=== PATIENT | male | born 1970 | race Two or more races ===

== ENCOUNTER 2017-09-19 20:05 | Inpatient (IN) | payer MEDICARE, MEDICAID ==
[~2017-09-19] VITALS: Ht 182.9 cm; Wt 81.6 kg
[2017-09-19 20:40] VITALS: BP 94/52
[2017-09-19 21:08] LABS: BASOPHILS % (AUTO) 1.3 % (0.0-2.0); EOSINOPHILS % (AUTO) 0.8 % (0.0-3.0); HEMOGLOBIN 11.6 G/DL (14.2-18.0); LYMPHOCYTES % (AUTO) 31.1 % (20.0-45.0); MEAN CORPUSCULAR VOLUME 95 FL (80-99); MONOCYTES % (AUTO) 18.5 % (1.0-10.0); NEUTROPHILS % (AUTO) 48.3 % (45.0-75.0); PLATELET COUNT 201 K/UL (150-450); RED BLOOD COUNT 3.67 M/UL (4.70-6.10); WHITE BLOOD COUNT 4.9 K/UL (4.8-10.8)
[2017-09-19 21:09] LABS: APPEARANCE,URINE CLEAR; BILIRUBIN, URINE NEGATIVE (NEGATIVE); COLOR,URINE PALE YELLOW; GLUCOSE, URINE (UA) NEGATIVE (NEGATIVE); KETONES,URINE NEGATIVE (NEGATIVE); LEUKOCYTE ESTERASE ,URINE NEGATIVE (NEGATIVE); NITRITE,URINE NEGATIVE (NEGATIVE); PH,URINE 6.5 (4.5-8.0); PROTEIN,URINE 2+ (NEGATIVE); UROBILINOGEN,URINE NORMAL MG/DL (0.0-1.0)
[2017-09-19 21:42] LABS: ALANINE AMINOTRANSFERASE 9 U/L (12-78); ALBUMIN 2.9 G/DL (3.4-5.0); ALBUMIN/GLOBULIN RATIO 0.7 (1.0-2.7); ALKALINE PHOSPHATASE 88 U/L (46-116); ANION GAP 10 mmol/L (5-15); ASPARTATE AMINO TRANSFERASE 11 U/L (15-37); BILIRUBIN,TOTAL 0.3 MG/DL (0.2-1.0); BLOOD UREA NITROGEN 17 mg/dL (7-18); CALCIUM 8.5 MG/DL (8.5-10.1); CARBON DIOXIDE 22 MMOL/L (21-32); CHLORIDE 105 MMOL/L (98-107); CKMB 0.5 NG/ML (0.0-3.6); CREATINE KINASE 39 U/L (26-308); CREATININE 2.5 MG/DL (0.55-1.30); SODIUM 137 MMOL/L (136-145)
[2017-09-19 21:45] LABS: POTASSIUM 2.4 MMOL/L (3.5-5.1)
--- NOTE | 2017-09-19 22:14 | Emergency Room Report ---
History of Present Illness General Chief Complaint: Generalized Weakness Source: Patient Present Illness HPI This is a 47 her old male brought in by family member after increased generalized weakness. Patient had reportedly been having a productive cough for several weeks. He reports having greenish colored sputum. He reports prior history of HIV disease which had been noted to have undetectable viral load as well as a low CD4 count. The patient states that he has been treated for Burkitt's lymphoma as well as for HIV at [facility] previously. He denies any current chest pain. He reports having generalized body aches weakness. He reports having prior history of chronic renal disease Allergies: Coded Allergies: LEVOFLOXACIN (Verified Allergy, Unknown, 09/19/17) Patient History Past Medical History: see triage record Reviewed Nursing Documentation: PMH: Agreed, PSxH: Agreed Nursing Documentation-PMH Hx Cancer: Yes - lymphoma Review of Systems All Other Systems: negative except mentioned in HPI Physical Exam Vital Signs Date Time Temp Pulse Resp B/P (MAP) Pulse Ox O2 Delivery O2 Flow Rate FiO2 09/19/17 20:07 99.0 114 18 94/52 98 Room Air Sp02 EP Interpretation: reviewed, normal General Appearance: normal inspection, well appearing, no apparent distress, alert, GCS 15, non-toxic Head: atraumatic ENT: normal ENT inspection, hearing grossly normal, normal voice, uvula midline Neck: normal inspection, full range of motion, supple, no bony tend Respiratory: normal inspection, lungs clear, normal breath sounds, no respiratory distress, no retraction, no wheezing Cardiovascular #1: regular rate, rhythm, no edema Gastrointestinal: normal inspection, normal bowel sounds, non tender, soft, no guarding, no hernia Genitourinary: no CVA tenderness Musculoskeletal: normal inspection, back normal, normal range of motion Neurologic: normal inspection, alert, oriented x3, responsive, 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 Differential diagnosis included was not limited to anemia, urinary tract infection, electrolyte abnormality, hypothyroidism, myocardial infarction, myasthenia gravis, dehydration, among others. Because of complexity of patient's case laboratory testing and imaging studies were ordered. Labs Test 09/19/17 20:50 White Blood Count 4.9 K/UL (4.8-10.8) Red Blood Count 3.67 M/UL (4.70-6.10) Hemoglobin 11.6 G/DL (14.2-18.0) Hematocrit 35.0 % (42.0-52.0) Mean Corpuscular Volume 95 FL (80-99) Mean Corpuscular Hemoglobin 31.7 PG (27.0-31.0) Mean Corpuscular Hemoglobin Concent 33.3 G/DL (32.0-36.0) Red Cell Distribution Width 13.0 % (11.6-14.8) Platelet Count 201 K/UL (150-450) Mean Platelet Volume 6.3 FL (6.5-10.1) Neutrophils (%) (Auto) 48.3 % (45.0-75.0) Lymphocytes (%) (Auto) 31.1 % (20.0-45.0) Monocytes (%) (Auto) 18.5 % (1.0-10.0) Eosinophils (%) (Auto) 0.8 % (0.0-3.0) Basophils (%) (Auto) 1.3 % (0.0-2.0) Urine Color Pale yellow Urine Appearance Clear Urine pH 6.5 (4.5-8.0) Urine Specific [place] 1.010 (1.005-1.035) Urine Protein 2+ (NEGATIVE) Urine Glucose (UA) Negative (NEGATIVE) Urine Ketones Negative (NEGATIVE) Urine Occult Blood 1+ (NEGATIVE) Urine Nitrite Negative (NEGATIVE) Urine Bilirubin Negative (NEGATIVE) Urine Urobilinogen Normal MG/DL (0.0-1.0) Urine Leukocyte Esterase Negative (NEGATIVE) Urine RBC 0-2 /HPF (0 - 0) Urine WBC 0-2 /HPF (0 - 0) Urine Squamous Epithelial Cells None /LPF (NONE/OCC) Urine Bacteria None /HPF (NONE) Sodium Level 137 MMOL/L (136-145) Potassium Level 2.4 MMOL/L (3.5-5.1) Chloride Level 105 MMOL/L (98-107) Carbon Dioxide Level 22 MMOL/L (21-32) Anion Gap 10 mmol/L (5-15) Blood Urea Nitrogen 17 mg/dL (7-18) Creatinine 2.5 MG/DL (0.55-1.30) Estimat Glomerular Filtration Rate 27.9 mL/min (>60) Glucose Level 85 MG/DL (74-106) Lactic Acid Level 1.50 mmol/L (0.66-2.22) Calcium Level 8.5 MG/DL (8.5-10.1) Total Bilirubin 0.3 MG/DL (0.2-1.0) Aspartate Amino Transf (AST/SGOT) 11 U/L (15-37) Alanine Aminotransferase (ALT/SGPT) 9 U/L (12-78) Alkaline Phosphatase 88 U/L (46-116) Total Creatine Kinase 39 U/L (26-308) Creatine Kinase MB 0.5 NG/ML (0.0-3.6) Creatine Kinase MB Relative Index 1.2 Troponin I 0.000 ng/mL (0.000-0.056) Pro-B-Type Natriuretic Peptide 180 pg/mL (0-125) Total Protein 7.1 G/DL (6.4-8.2) Albumin 2.9 G/DL (3.4-5.0) Globulin 4.2 g/dL Albumin/Globulin Ratio 0.7 (1.0-2.7) Lipase 97 U/L (73-393) EKG Diagnostic Results Rate: tachycardiac - 103 Rhythm: NSR ST Segments: no acute changes Last Vital Signs Date Time Temp Pulse Resp B/P (MAP) Pulse Ox O2 Delivery O2 Flow Rate FiO2 09/19/17 20:07 99.0 114 18 94/52 98 Room Air Status: unchanged Disposition: ADMITTED INPATIENT Condition: Serious Referrals: NON PHYSICIAN (PCP) Jaiden aWde Sep 19, 2017 22:14
[2017-09-19 22:40] VITALS: BP 107/60
[2017-09-19] MEDS ORDERED: cefTRIAXone 1 GM in NS 55 ML IVPB ONE (23:15)
[2017-09-19] MEDS ORDERED: Azithromycin 500 MG in D5W 275 ML IVPB SCH (23:15)
[2017-09-19] MEDS ORDERED: Azithromycin 500mg Inj IV ONE (23:56)
[2017-09-19] MEDS ORDERED: NS 275 ML ONE (23:57)
[2017-09-20] VITALS (7 sets, daily range): BP systolic 88–110; BP diastolic 52–70
[2017-09-20] MEDS ORDERED: UNOBMED (00:13)
[2017-09-20] MEDS ORDERED: Miralax 17gm pkt ORAL PRN ×2 (06:30→17:30)
[2017-09-20] MEDS ORDERED: Albuterol/Ipratropium 3ml neb HHN PRN ×2 (06:30→17:30)
[2017-09-20] MEDS ORDERED: LORazepam Inj 2mg/ml 1ml IV PRN (06:30)
[2017-09-20] MEDS ORDERED: Vancomycin 1.5 GM/D5W 250ML IVPB SCH (08:00)
[2017-09-20] MEDS ORDERED: Heparin 5000 units/ml inj SUBQ SCH (09:00)
[2017-09-20] MEDS ORDERED: Cefepime HCl 2 GM in D5W 110 ML IV SCH (09:00)
[2017-09-20 09:40] LABS: ALANINE AMINOTRANSFERASE 7 U/L (12-78); ALBUMIN 2.8 G/DL (3.4-5.0); ALBUMIN/GLOBULIN RATIO 0.7 (1.0-2.7); ALKALINE PHOSPHATASE 79 U/L (46-116); ANION GAP 8 mmol/L (5-15); ASPARTATE AMINO TRANSFERASE 9 U/L (15-37); BILIRUBIN,TOTAL 0.3 MG/DL (0.2-1.0); BLOOD UREA NITROGEN 15 mg/dL (7-18); CALCIUM 8.3 MG/DL (8.5-10.1); CARBON DIOXIDE 24 MMOL/L (21-32); CHLORIDE 108 MMOL/L (98-107); CREATININE 2.3 MG/DL (0.55-1.30); POTASSIUM 2.9 MMOL/L (3.5-5.1); SODIUM 140 MMOL/L (136-145)
--- NOTE | 2017-09-20 10:32 | History and Physical ---
History of Present Illness General Date patient seen: Sep 20, 2017 Reason for Hospitalization: Generalized Weakness Present Illness HPI 47 her old male with prior history of HIV disease, undetectable viral, a low CD4 count, Burkitt's lymphoma, chronic renal disease brought in by family member after increased generalized weakness productive cough for several week, having greenish colored sputum. He denies any current chest pain. He reports having generalized body aches weakness as well. His K was extremely low and admitted to telemetry for further work up. Allergies: Coded Allergies: HYDROMORPHONE (Verified Allergy, Unknown, Shortness of Breath, 09/20/17) LEVOFLOXACIN (Verified Allergy, Unknown, 09/19/17) Medication History Miscellaneous Medications Unable to Obtain Medications (Unable To Obtain Meds), (Reported) Patient History Healthcare decision maker Resuscitation status Full Code Advanced Directive on File Past Medical/Surgical History Past Medical/Surgical History: (1) History of lymphoma (2) HIV (human immunodeficiency virus infection) Review of Systems All Other Systems: negative except mentioned in HPI Physical Exam General Appearance: cachetic Lines, tubes and drains: peripheral HEENT: normocephalic, atraumatic Neck: non-tender, normal alignment Respiratory/Chest: chest wall non-tender, lungs clear Breasts: no masses Cardiovascular/Chest: normal peripheral pulses Abdomen: normal bowel sounds Genitourinary/Rectal: normal genital exam Extremities: normal range of motion 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 Last 24 Hour Vital Signs Date Time Temp Pulse Resp B/P (MAP) Pulse Ox O2 Delivery O2 Flow Rate FiO2 09/20/17 08:00 97.7 84 20 92/53 98 09/20/17 04:00 97.7 83 18 107/61 99 09/20/17 04:00 77 09/20/17 00:30 99.0 100 16 104/70 100 Room Air 09/20/17 00:09 100 16 104/70 100 Room Air 09/20/17 00:00 98.2 103 20 110/65 95 09/19/17 22:40 97 18 107/60 99 Room Air 09/19/17 20:40 99.0 113 18 94/52 98 Room Air 09/19/17 20:07 99.0 114 18 94/52 98 Room Air Intake and Output 09/19/17 09/20/17 19:00 07:00 Intake Total 0 ml Balance 0 ml Intake Oral 0 ml # Voids 1 Laboratory Tests Test 09/19/17 20:50 09/20/17 08:35 White Blood Count 4.9 K/UL (4.8-10.8) Red Blood Count 3.67 M/UL (4.70-6.10) L Hemoglobin 11.6 G/DL (14.2-18.0) L Hematocrit 35.0 % (42.0-52.0) L Mean Corpuscular Volume 95 FL (80-99) Mean Corpuscular Hemoglobin 31.7 PG (27.0-31.0) H Mean Corpuscular Hemoglobin Concent 33.3 G/DL (32.0-36.0) Red Cell Distribution Width 13.0 % (11.6-14.8) Platelet Count 201 K/UL (150-450) Mean Platelet Volume 6.3 FL (6.5-10.1) L Neutrophils (%) (Auto) 48.3 % (45.0-75.0) Lymphocytes (%) (Auto) 31.1 % (20.0-45.0) Monocytes (%) (Auto) 18.5 % (1.0-10.0) H Eosinophils (%) (Auto) 0.8 % (0.0-3.0) Basophils (%) (Auto) 1.3 % (0.0-2.0) Urine Color Pale yellow Urine Appearance Clear Urine pH 6.5 (4.5-8.0) Urine Specific [place] 1.010 (1.005-1.035) Urine Protein 2+ (NEGATIVE) H Urine Glucose (UA) Negative (NEGATIVE) Urine Ketones Negative (NEGATIVE) Urine Occult Blood 1+ (NEGATIVE) H Urine Nitrite Negative (NEGATIVE) Urine Bilirubin Negative (NEGATIVE) Urine Urobilinogen Normal MG/DL (0.0-1.0) Urine Leukocyte Esterase Negative (NEGATIVE) Urine RBC 0-2 /HPF (0 - 0) H Urine WBC 0-2 /HPF (0 - 0) Urine Squamous Epithelial Cells None /LPF (NONE/OCC) Urine Bacteria None /HPF (NONE) Sodium Level 137 MMOL/L (136-145) 140 MMOL/L (136-145) Potassium Level 2.4 MMOL/L (3.5-5.1) *L 2.9 MMOL/L (3.5-5.1) L Chloride Level 105 MMOL/L (98-107) 108 MMOL/L (98-107) H Carbon Dioxide Level 22 MMOL/L (21-32) 24 MMOL/L (21-32) Anion Gap 10 mmol/L (5-15) 8 mmol/L (5-15) Blood Urea Nitrogen 17 mg/dL (7-18) 15 mg/dL (7-18) Creatinine 2.5 MG/DL (0.55-1.30) H 2.3 MG/DL (0.55-1.30) H Estimat Glomerular Filtration Rate 27.9 mL/min (>60) 30.8 mL/min (>60) Glucose Level 85 MG/DL (74-106) 135 MG/DL (74-106) H Lactic Acid Level 1.50 mmol/L (0.66-2.22) Calcium Level 8.5 MG/DL (8.5-10.1) 8.3 MG/DL (8.5-10.1) L Total Bilirubin 0.3 MG/DL (0.2-1.0) 0.3 MG/DL (0.2-1.0) Aspartate Amino Transf (AST/SGOT) 11 U/L (15-37) L 9 U/L (15-37) L Alanine Aminotransferase (ALT/SGPT) 9 U/L (12-78) L 7 U/L (12-78) L Alkaline Phosphatase 88 U/L (46-116) 79 U/L (46-116) Total Creatine Kinase 39 U/L (26-308) Creatine Kinase MB 0.5 NG/ML (0.0-3.6) Creatine Kinase MB Relative Index 1.2 Troponin I 0.000 ng/mL (0.000-0.056) Pro-B-Type Natriuretic Peptide 180 pg/mL (0-125) H Total Protein 7.1 G/DL (6.4-8.2) 6.7 G/DL (6.4-8.2) Albumin 2.9 G/DL (3.4-5.0) L 2.8 G/DL (3.4-5.0) L Globulin 4.2 g/dL 3.9 g/dL Albumin/Globulin Ratio 0.7 (1.0-2.7) L 0.7 (1.0-2.7) L Lipase 97 U/L (73-393) Microbiology Date/Time Source Procedure Growth Status 09/19/17 21:00 Nasal Nares Influenza Types A,B Antigen (GENET) - Final Complete Height (Feet): 6 Height (Inches): 0.00 Weight (Pounds): 180 Medications Current Medications Medications (Trade) Dose Ordered Sig/Misty Route PRN Reason Start Time Stop Time Status Last Admin Dose Admin Acetaminophen (Tylenol) 650 mg Q4H PRN ORAL FEVER 09/20/17 06:30 10/20/17 06:29 Albuterol/ Ipratropium (Albuterol/ Ipratropium) 3 ml EVERY 4 HOURS PRN HHN Shortness of Breath 09/20/17 06:30 09/25/17 06:29 Azithromycin 500 mg/Dextrose 275 ml @ 275 mls/hr Q24HRS IVPB 09/19/17 23:15 09/26/17 00:14 09/19/17 23:59 Cefepime HCl 2 gm/ Dextrose 110 ml @ 220 mls/hr EVERY 12 HOURS IV 09/20/17 09:00 09/27/17 08:59 Dextrose (Dextrose 50%) STAT PRN IV Hypoglycemia 09/20/17 06:30 10/20/17 06:29 Heparin Sodium (Porcine) (Heparin 5000 units/ml) 5,000 units EVERY 12 HOURS SUBQ 09/20/17 09:00 10/20/17 08:59 09/20/17 08:44 Lorazepam (Ativan 2mg/ml 1ml) 2 mg EVERY 2 HOURS PRN IV For Anxiety 09/20/17 06:30 09/27/17 06:29 Ondansetron HCl (Zofran) 4 mg Q6H PRN IVP Nausea & Vomiting 09/20/17 06:30 10/20/17 06:29 Polyethylene Glycol (Miralax) 17 gm DAILYPRN PRN ORAL Constipation 09/20/17 06:30 10/20/17 06:29 Sodium Chloride 1,000 ml @ 50 mls/hr Q20H IV 09/20/17 06:24 10/20/17 06:23 09/20/17 07:00 Vancomycin HCl/ Dextrose 250 ml @ 125 mls/hr Q24H IVPB 09/20/17 08:00 09/25/17 07:59 09/20/17 08:44 Assessment/Plan Problem List: (1) Purulent bronchitis ICD Codes: J41.1 - Mucopurulent chronic bronchitis SNOMED: 20940214 (2) Hypokalemia ICD Codes: E87.6 - Hypokalemia SNOMED: 34750854 (3) Generalized weakness ICD Codes: R53.1 - Weakness SNOMED: 88679611 (4) History of lymphoma ICD Codes: Z85.79 - Personal history of other malignant neoplasms of lymphoid, hematopoietic and related tissues SNOMED: 067361366 (5) HIV (human immunodeficiency virus infection) ICD Codes: B20 - Human immunodeficiency virus [HIV] disease SNOMED: 98619224 Assessment/Plan K supplement renal studies renal evaluation ID to see check sputum continue abx check viral load. EMILY TRIMBLE Sep 20, 2017 10:32
[2017-09-20 11:41] LABS: CREATINE KINASE 29 U/L (26-308)
[2017-09-20] MEDS ORDERED: Potassium Chloride 40 MEQ in 1/2 NS 1000ml 1,000 ML IV SCH ×2 (12:00→14:30)
--- NOTE | 2017-09-20 12:02 | Diagnostic Imaging Report ---
Indication: Shortness of breath Technique: One view of the chest Comparison: none Findings: Lungs and pleural spaces are clear. Heart size is normal Impression: No acute process
--- NOTE | 2017-09-20 13:26 | Consultation ---
Consult Note Consult Note ID DIC# [id number] PRECIOUS HODGSON M.D. Sep 20, 2017 13:26
--- NOTE | 2017-09-20 14:00 | Consultation ---
Consult Note Consult Note asked to eval for renal failure and low K This is a 47 her old male brought in by family member after increased generalized weakness. Patient had reportedly been having a productive cough for several weeks. He reports having greenish colored sputum. He reports prior history of HIV disease which had been noted to have undetectable viral load as well as a low CD4 count. The patient states that he has been treated for Burkitt's lymphoma as well as for HIV at [facility] previously. He denies any current chest pain. He reports having generalized body aches weakness. He reports having prior history of chronic renal disease Allergies: Coded Allergies: LEVOFLOXACIN (Verified Allergy, Unknown, 09/19/17) patient interviewed , examined data reviewed admitted for: Hypokalemia, Renal insufficiency HIV (human immunodeficiency virus infection) History of leukemia Generalized weakness Purulent bronchitis Assessment/Plan CKD with proteinuria ? HIV related HypoKalemia HIV Purlulent bronchitis h/o Lymphoma Plan: Hydrate 24 h urine protein K supplement urine studies Kidney LEIGH 2D Echo Per TERESA COLMENARES Sep 20, 2017 14:00
--- NOTE | 2017-09-20 14:48 | Cardiology Progress Note ---
Assessment/Plan Assessment/Plan [id number] Objective Last 24 Hour Vital Signs Date Time Temp Pulse Resp B/P (MAP) Pulse Ox O2 Delivery O2 Flow Rate FiO2 09/20/17 12:00 95 09/20/17 12:00 97.2 98 20 104/58 98 09/20/17 08:00 97.7 84 20 92/53 98 09/20/17 08:00 93 09/20/17 04:00 97.7 83 18 107/61 99 09/20/17 04:00 77 09/20/17 00:30 99.0 100 16 104/70 100 Room Air 09/20/17 00:09 100 16 104/70 100 Room Air 09/20/17 00:00 98.2 103 20 110/65 95 09/19/17 22:40 97 18 107/60 99 Room Air 09/19/17 20:40 99.0 113 18 94/52 98 Room Air 09/19/17 20:07 99.0 114 18 94/52 98 Room Air Intake and Output 09/19/17 09/20/17 19:00 07:00 Intake Total 0 ml Balance 0 ml Intake Oral 0 ml # Voids 1 Laboratory Tests Test 09/19/17 20:50 09/20/17 08:35 09/20/17 11:17 White Blood Count 4.9 K/UL (4.8-10.8) Red Blood Count 3.67 M/UL (4.70-6.10) L Hemoglobin 11.6 G/DL (14.2-18.0) L Hematocrit 35.0 % (42.0-52.0) L Mean Corpuscular Volume 95 FL (80-99) Mean Corpuscular Hemoglobin 31.7 PG (27.0-31.0) H Mean Corpuscular Hemoglobin Concent 33.3 G/DL (32.0-36.0) Red Cell Distribution Width 13.0 % (11.6-14.8) Platelet Count 201 K/UL (150-450) Mean Platelet Volume 6.3 FL (6.5-10.1) L Neutrophils (%) (Auto) 48.3 % (45.0-75.0) Lymphocytes (%) (Auto) 31.1 % (20.0-45.0) Monocytes (%) (Auto) 18.5 % (1.0-10.0) H Eosinophils (%) (Auto) 0.8 % (0.0-3.0) Basophils (%) (Auto) 1.3 % (0.0-2.0) Urine Color Pale yellow Pending Urine Appearance Clear Pending Urine pH 6.5 (4.5-8.0) Pending Urine Specific [place] 1.010 (1.005-1.035) Pending Urine Protein 2+ (NEGATIVE) H Pending Urine Glucose (UA) Negative (NEGATIVE) Pending Urine Ketones Negative (NEGATIVE) Pending Urine Occult Blood 1+ (NEGATIVE) H Pending Urine Nitrite Negative (NEGATIVE) Pending Urine Bilirubin Negative (NEGATIVE) Pending Urine Urobilinogen Normal MG/DL (0.0-1.0) Pending Urine Leukocyte Esterase Negative (NEGATIVE) Pending Urine RBC 0-2 /HPF (0 - 0) H Pending Urine WBC 0-2 /HPF (0 - 0) Pending Urine Squamous Epithelial Cells None /LPF (NONE/OCC) Pending Urine Bacteria None /HPF (NONE) Pending Sodium Level 137 MMOL/L (136-145) 140 MMOL/L (136-145) Potassium Level 2.4 MMOL/L (3.5-5.1) *L 2.9 MMOL/L (3.5-5.1) L Chloride Level 105 MMOL/L (98-107) 108 MMOL/L (98-107) H Carbon Dioxide Level 22 MMOL/L (21-32) 24 MMOL/L (21-32) Anion Gap 10 mmol/L (5-15) 8 mmol/L (5-15) Blood Urea Nitrogen 17 mg/dL (7-18) 15 mg/dL (7-18) Creatinine 2.5 MG/DL (0.55-1.30) H 2.3 MG/DL (0.55-1.30) H Estimat Glomerular Filtration Rate 27.9 mL/min (>60) 30.8 mL/min (>60) Glucose Level 85 MG/DL (74-106) 135 MG/DL (74-106) H Lactic Acid Level 1.50 mmol/L (0.66-2.22) Calcium Level 8.5 MG/DL (8.5-10.1) 8.3 MG/DL (8.5-10.1) L Total Bilirubin 0.3 MG/DL (0.2-1.0) 0.3 MG/DL (0.2-1.0) Aspartate Amino Transf (AST/SGOT) 11 U/L (15-37) L 9 U/L (15-37) L Alanine Aminotransferase (ALT/SGPT) 9 U/L (12-78) L 7 U/L (12-78) L Alkaline Phosphatase 88 U/L (46-116) 79 U/L (46-116) Total Creatine Kinase 39 U/L (26-308) 29 U/L (26-308) Creatine Kinase MB 0.5 NG/ML (0.0-3.6) Creatine Kinase MB Relative Index 1.2 Troponin I 0.000 ng/mL (0.000-0.056) Pro-B-Type Natriuretic Peptide 180 pg/mL (0-125) H Total Protein 7.1 G/DL (6.4-8.2) 6.7 G/DL (6.4-8.2) Albumin 2.9 G/DL (3.4-5.0) L 2.8 G/DL (3.4-5.0) L Globulin 4.2 g/dL 3.9 g/dL Albumin/Globulin Ratio 0.7 (1.0-2.7) L 0.7 (1.0-2.7) L Lipase 97 U/L (73-393) Uric Acid 2.0 MG/DL (2.6-7.2) L C-Reactive Protein, Quantitative 3.2 mg/dL (0.00-0.90) H Urine Eosinophils Pending Urine Random Sodium Pending Urine Potassium Timed Pending Microbiology Date/Time Source Procedure Growth Status 09/19/17 21:00 Nasal Nares Influenza Types A,B Antigen (GENET) - Final Complete LEWIS NOGUERA Sep 20, 2017 14:48
[2017-09-20 14:58] LABS: APPEARANCE,URINE CLEAR; BILIRUBIN, URINE NEGATIVE (NEGATIVE); COLOR,URINE PALE YELLOW; GLUCOSE, URINE (UA) 2+ (NEGATIVE); KETONES,URINE NEGATIVE (NEGATIVE); LEUKOCYTE ESTERASE ,URINE NEGATIVE (NEGATIVE); NITRITE,URINE NEGATIVE (NEGATIVE); PH,URINE 7 (4.5-8.0); PROTEIN,URINE 2+ (NEGATIVE); UROBILINOGEN,URINE NORMAL MG/DL (0.0-1.0)
--- NOTE | 2017-09-20 15:47 | Cardiology Report ---
APPROVED REPORT EXAM: Two-dimensional and M-mode echocardiogram with Doppler and color Doppler. INDICATION Congestive Heart Failure M-Mode DIMENSIONS IVSd0.7 (0.7-1.1cm)Left Atrium (MM)4.2 (1.6-4.0cm) LVDd4.1 (3.5-5.6cm)Aortic Root2.9 (2.0-3.7cm) PWd1.3 (0.7-1.1cm)Aortic Cusp Exc.2.0 (1.5-2.0cm) LVDs2.1 (2.5-4.0cm) PWs1.8 cm Normal left ventricular chamber size, systolic function and wall motion. Left ventricular ejection fraction estimated to be 60-65%. No evidence of left ventricular hypertrophy. No evidence of pericardial or pleural effusion. Right cardiac chamber sizes are within normal limits. Mild left atrial enlargement by 2D. Focal aortic valve sclerosis with adequate cusp excursion. Thickened mitral valve leaflets with normal excursion. Mild mitral annulus and aortic root calcification. Pulmonic valve is well visualized. Normal tricuspid valve structure. IVC is normal in size and collapsible with respiration. A color flow and spectral Doppler study was performed and revealed: No aortic regurgitation. No mitral regurgitation. Normal mitral diastolic function. No tricuspid regurgitation.
[2017-09-20] MEDS ORDERED: FLUCONAZOLE200 MG (16:34)
[2017-09-20] MEDS ORDERED: PREZISTA800 MG (16:34)
[2017-09-20] MEDS ORDERED: EPZICOM TABLET1 EAC1 (16:34)
[2017-09-20] MEDS ORDERED: AZITHROMYCIN600 MG (16:34)
[2017-09-20] MEDS ORDERED: DICLOFENAC SOD100 G1 (16:34)
[2017-09-20] MEDS ORDERED: ZOLPIDEM TARTRA10 MG (16:34)
[2017-09-20] MEDS ORDERED: NORVIR100 M2 (16:34)
[2017-09-20] MEDS ORDERED: ESOMEPRAZOLE MA40 MG (16:34)
[2017-09-20] MEDS ORDERED: LORAZEPAM2 MG (16:34)
[2017-09-20] MEDS ORDERED: ONDANSETRON ODT4 MG (16:34)
[2017-09-20] MEDS ORDERED: SULFAMETHOXAZO1 EAC2 (16:34)
[2017-09-20] MEDS ORDERED: SODIUM BICARBO325 MG PO (16:36)
[2017-09-20] MEDS ORDERED: VITAMIN D2400 UNI1 PO (16:36)
--- NOTE | 2017-09-20 16:45 | Consultation ---
DATE OF CONSULTATION: 09/20/2017 INFECTIOUS DISEASE CONSULTATION CONSULTING PHYSICIAN: Ilya Guillermo M.D. REQUESTING PHYSICIAN: Bradford Hagan M.D. REASON FOR CONSULTATION: Evaluation of the patient for human immunodeficiency virus, possible bronchitis, pneumonia, antibiotic management. HISTORY OF PRESENT ILLNESS: The patient is a 47-year-old male with past medical history significant for HIV/AIDS who has been followed with his HIV doctor came to the hospital due to shortness of breath, chest compression and discomfort. The patient also has increased cough recently with sputum production. Infectious Disease consultation has been requested for further evaluation of the patient and antibiotic management. The patient's sister recently passed in an accident and the patient feels significant amount of anxiety. PAST MEDICAL HISTORY: 1. History of HIV/AIDS, CD4 count recently 117. 2. 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 3. History of diverticulitis. 4. History of cholecystectomy. 5. History of anxiety. 6. History of chronic kidney disease. MEDICATIONS: The patient on IV cefepime and vancomycin. The patient's HIV medication not clear completely, possible Prezista, Norvir, Epzicom and Bactrim for PCP prophylaxis. ALLERGIES: Morphine and hydromorphone. SOCIAL HISTORY: Negative for alcohol, drug abuse, or smoking. FAMILY HISTORY: Not contributing. REVIEW OF SYSTEMS: HEENT: No recent change in vision or hearing. PULMONARY: As mentioned. CARDIOVASCULAR: As mentioned. GASTROINTESTINAL/ABDOMEN: No nausea or vomiting. GENITOURINARY: No dysuria. MUSCULOSKELETAL: No pain in extremity. PHYSICAL EXAMINATION: VITAL SIGNS: Temperature 98 degrees, pulse 86, respiratory rate 18, and blood pressure 92/52. HEENT: No pale conjunctivae. No icterus. NECK: No lymphadenopathy. CHEST: Clear. HEART: S1 and S2. ABDOMEN: Soft and nontender. EXTREMITIES: No cyanosis at this time. NEUROLOGIC: Awake and alert. LABORATORY AND DIAGNOSTIC DATA: White blood cells 15. Creatinine 2.3. ALT and AST are unremarkable. UA unremarkable. BUN 15 and creatinine 2.3. Rapid influenza A test negative. Chest x-ray, [facility]. ASSESSMENT AND PLAN: 1. Bronchitis ? slightly community-acquired pneumonia. 2. Human immunodeficiency virus/acquired immune deficiency syndrome. 3. History of non-Hodgkin lymphoma. 4. Chest discomfort and shortness of breath, probably due to anxiety. PLAN: 1. We will continue the patient on cefepime and Zithromax, discontinue vancomycin. 2. Monitor CBC. 3. Monitor BMP. 4. Monitor chest x-ray. 5. We will resume the patient's HIV medication after verification with outside pharmacy (the patient may take his home medication). 6. We will start the patient on Bactrim DS three times a week. 7. Based on the patient's clinical course and labs, we will do further recommendation. Thank you, Dr. Hagan, for allowing me to participate in the care of this patient. I will follow the patient with you during this hospitalization. Ilya Guillermo M.D. DR: CARLITA JOB#: [id number] CC:
[2017-09-20] MEDS: Potassium Chloride 40 MEQ in 1/2 NS 1000ml 1,000 ML IV SCH (17:30)
--- NOTE | 2017-09-20 20:00 | Consultation ---
DATE OF CONSULTATION: 09/19/2017 CARDIOLOGY CONSULTATION CONSULTING PHYSICIAN: Ryan Haney M.D. REFERRING PHYSICIAN: Bradford Hagan M.D. REASON FOR REFERRAL: Tachycardia and chest pain. HISTORY OF PRESENT ILLNESS: This is an unfortunate 47-year-old gentleman with history of multiple medical problems, came back, who was okay for a day and over the past few days, he has been having some coughing, sore throat, fevers, and some chills. He has chronic purulent discharge from his nose on the right side secondary to sinus issues, but now is having some purulent discharge when he coughs. He did have shortness of breath yesterday and rattling voices in his chest. He has had no PND or orthopnea. No palpitations and occasional dizziness on standing. The patient complained of some tightness in the chest and some right-sided pain with deep breathing yesterday, but no longer present. PAST MEDICAL HISTORY: His past medical history is extensive. He is followed from [facility] where he has had a history of human-immunodeficiency virus and acquired immune deficiency syndrome and Burkitt's lymphoma status post chemotherapy with chronic subsequent relapse requiring stem cell transplant in remission. He also has a bipolar disease, chronic kidney disease, as well as acquired immune deficiency syndrome, Kaposi's sarcoma, meningitis history, and gastroesophageal reflux disease, urinary tract infection, edema, and element of acidosis according to his records. ALLERGIES: He is allergic to Dilaudid, Levaquin, morphine, Darvocet, and Remeron. SOCIAL HISTORY: Never smoked. He used one standard drink at times occasionally. He has no drug use otherwise. 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 REVIEW OF SYSTEMS: GENITOURINARY: He has abnormal smell to his urine, but he denies any burning. PULMONARY SYSTEM: As mentioned in the HPI. Coughing and wheezing. CONSTITUTIONAL: No fevers or chills. NEUROLOGIC: He has got peripheral neuropathy secondary to chemotherapy. PHYSICAL EXAMINATION: GENERAL: Shows a young gentleman, in no respiratory distress. NECK: Supple. No jugular venous distention. LUNGS: Relatively clear to auscultation and percussion. CARDIAC: Regular rate and rhythm. No heaves or thrills noted. ABDOMEN: Soft and nontender. Positive bowel sounds. EXTREMITIES: There is no clubbing or cyanosis. There is edema. NEUROLOGIC: Awake, alert, responsive, and in no respiratory distress. LABORATORY AND DIAGNOSTIC DATA: White count is 4.9, hemoglobin 11.6, and platelet count 201,000. Sodium is 140, potassium 2.9, chloride 108, bicarb 24, BUN of 15, creatinine 2.3, and a glucose of 135. Lactic acid 1.5. Uric acid of 2.0. Liver function tests are relatively normal. CK of 29. His proBNP was only 180 and his albumin was 2.8. Urinalysis is fairly unremarkable except for 2+ protein. He had chest x-rays performed in the emergency room that showed no acute processes at that time and he had a venous duplex study of the lower extremities that shows no evidence of DVT. His electrocardiogram shows normal sinus rhythm, normal QRS axis, and actually sinus tachycardia at a rate of 100. No ST or T-wave abnormalities. ASSESSMENT AND PLAN: 1. Possible viral upper respiratory tract infection versus bacterial. 2. History of Burkitt's lymphoma status post stem cell transplantation. 3. Human immunodeficiency virus/acquired immune deficiency syndrome. 4. Chronic renal insufficiency. 5. Adjustment disorder. PLAN: Dr. Hagan, this patient was seen in cardiac consultation. Information from [facility] was reviewed. His creatinine has been running between 1.8 to 2.2 at [facility] most recently in May 2017. He seems to be doing better at the present time. His latest vital signs do not show that he has any fevers. Blood pressures have been as low as 92/53 as high as 107/61. His heart rates in the 80s to 90s range. The electrocardiogram is unremarkable. From a cardiac point of view, he seems to be relatively stable although he did have a components of dehydration and I will follow him along for any significant other abnormalities. Of note, he did complain at some point during the conversation of some pleuritic-type of chest pain on the right side that he had before, but he no longer is experiencing at this time. Repeat EKG and echocardiogram will be ordered and cardiac enzymes will be also ordered. His venous duplex is negative. He does not appear to be in any respiratory distress at this time and otherwise hemodynamically more stable. Ryan Haney M.D. DR: SAVI JOB#: [id number] CC:
[2017-09-20] MEDS: Heparin 5000 units/ml inj SUBQ SCH (20:38)
[2017-09-20] MEDS: LORazepam Inj 2mg/ml 1ml IV PRN (20:42)
[2017-09-20] MEDS ORDERED: Vancomycin 1 GM in D5W 275 ML IV SCH (23:00)
[2017-09-21] MEDS: Potassium Chloride 40 MEQ in 1/2 NS 1000ml 1,000 ML IV SCH ×2 (03:35→17:53)
[2017-09-21 04:06] VITALS: BP 91/59
[2017-09-21 07:53] LABS: HEMATOCRIT 31.6 % (42.0-52.0); HEMOGLOBIN 10.2 G/DL (14.2-18.0); MEAN CORPUSCULAR VOLUME 99 FL (80-99); PLATELET COUNT 152 K/UL (150-450)
[2017-09-21 08:00] VITALS: BP 90/68
[2017-09-21 08:23] LABS: ALANINE AMINOTRANSFERASE 8 U/L (12-78); ALBUMIN 2.4 G/DL (3.4-5.0); ALBUMIN/GLOBULIN RATIO 0.6 (1.0-2.7); ALKALINE PHOSPHATASE 87 U/L (46-116); ANION GAP 9 mmol/L (5-15); ASPARTATE AMINO TRANSFERASE 10 U/L (15-37); BILIRUBIN,TOTAL 0.2 MG/DL (0.2-1.0); BLOOD UREA NITROGEN 18 mg/dL (7-18); CALCIUM 8.2 MG/DL (8.5-10.1); CARBON DIOXIDE 21 MMOL/L (21-32); CHLORIDE 110 MMOL/L (98-107); CHOLESTEROL 76 MG/DL (< 200); CREATINE KINASE 25 U/L (26-308); GAMMA GLUTAMYL TRANSPEPTIDASE 23 U/L (5-85); HDL CHOLESTEROL 41 MG/DL (40-60); PHOSPHORUS 1.6 MG/DL (2.5-4.9); POTASSIUM 3.4 MMOL/L (3.5-5.1); SODIUM 140 MMOL/L (136-145); TRIGLYCERIDES 39 MG/DL (30-150)
--- NOTE | 2017-09-21 08:47 | Diagnostic Imaging Report ---
Indication: Abnormal renal function tests Technique: Grayscale and duplex images of the kidneys, retroperitoneum, and bladder were obtained. Comparison: none Findings: Right kidney measures 11 cm in length. Left kidney measures 10.3 cm in length. Both kidneys demonstrate normal echogenicity. No hydronephrosis. Questionable echogenic nonobstructive focus in the right kidney, could represent small calculus versus artifact. Normal inferior vena cava. Bladder demonstrates 20 mL postvoid residual. Impression: Negative for hydronephrosis Possible nonobstructive right renal calculus versus artifact Note 20 mL postvoid bladder residual.
[2017-09-21] MEDS ORDERED: Bactrim-DS 1 tab ORAL SCH (09:00)
[2017-09-21] MEDS ORDERED: Cefepime HCl 2 GM in D5W 110 ML IV SCH ×4 (09:00)
[2017-09-21] MEDS: Bactrim-DS 1 tab ORAL SCH (09:08)
[2017-09-21] MEDS: Heparin 5000 units/ml inj SUBQ SCH ×2 (09:10→20:49)
--- NOTE | 2017-09-21 10:27 | Infectious Diseases Prog Note ---
Assessment/Plan Assessment/Plan A: ASSESSMENT Bronchitis ? less likely community-acquired pneumonia. History of HIV/AIDS, CD4 count recently 137 Rapid influenza A test negative Chest x-ray, [facility] Chest discomfort and shortness of breath, probably due to anxiety. History of non-Hodgkin's lymphoma, diagnosed 10 years ago status post bone marrow transplant History of diverticulitis History of cholecystectomy. Anxiety CKD PLAN: cont Zithromax d# 2/ 5 cont pt on Prezista, Norvir, Epzicom and Bactrim for PCP prophylaxis. 09/21 SP cefepime d# 2 09/20 SP vancomycin d# 1 Monitor CBC. Monitor BMP. Monitor chest x-ray. Subjective Constitutional: Denies: no symptoms, fever, chills, fatigue, anorexia, drenching sweats, other Allergies: Coded Allergies: HYDROMORPHONE (Verified Allergy, Unknown, Shortness of Breath, 09/20/17) LEVOFLOXACIN (Verified Allergy, Unknown, 09/19/17) Objective Vital Signs Last 24 Hour Vital Signs Date Time Temp Pulse Resp B/P (MAP) Pulse Ox O2 Delivery O2 Flow Rate FiO2 09/21/17 08:00 97.9 86 20 90/68 98 09/21/17 07:56 80 16 Room Air 09/21/17 04:06 98.0 80 20 91/59 99 09/20/17 21:36 99.4 09/20/17 20:00 100.3 101 20 88/57 99 09/20/17 16:00 97.9 92 20 105/52 99 09/20/17 12:00 95 09/20/17 12:00 97.2 98 20 104/58 98 Height (Feet): 6 Height (Inches): 0.00 Weight (Pounds): 180 HEENT: anicteric Respiratory/Chest: no respiratory distress Cardiovascular: regularly irregular Abdomen: non distended Microbiology Date/Time Source Procedure Growth Status 09/19/17 21:00 Nasal Nares Influenza Types A,B Antigen (GENET) - Final Complete Laboratory Tests Test 09/20/17 11:17 09/21/17 06:50 Urine Color Pale yellow Urine Appearance Clear Urine pH 7 (4.5-8.0) Urine Specific [place] 1.010 (1.005-1.035) Urine Protein 2+ (NEGATIVE) H Urine Glucose (UA) 2+ (NEGATIVE) H Urine Ketones Negative (NEGATIVE) Urine Occult Blood Negative (NEGATIVE) Urine Nitrite Negative (NEGATIVE) Urine Bilirubin Negative (NEGATIVE) Urine Urobilinogen Normal MG/DL (0.0-1.0) Urine Leukocyte Esterase Negative (NEGATIVE) Urine RBC 0 /HPF (0 - 0) Urine WBC 0-2 /HPF (0 - 0) Urine Squamous Epithelial Cells Occasional /LPF Urine Bacteria Occasional /HPF (NONE) Urine Eosinophils None seen Urine Random Sodium 66 MEQ/L (20-110) Urine Potassium Timed 5 mmol/L (12-62) L White Blood Count 3.0 K/UL (4.8-10.8) L Red Blood Count 3.20 M/UL (4.70-6.10) L Hemoglobin 10.2 G/DL (14.2-18.0) L Hematocrit 31.6 % (42.0-52.0) L Mean Corpuscular Volume 99 FL (80-99) Mean Corpuscular Hemoglobin 32.0 PG (27.0-31.0) H Mean Corpuscular Hemoglobin Concent 32.4 G/DL (32.0-36.0) Red Cell Distribution Width 14.0 % (11.6-14.8) Platelet Count 152 K/UL (150-450) Mean Platelet Volume 6.5 FL (6.5-10.1) Neutrophils (%) (Auto) % (45.0-75.0) Lymphocytes (%) (Auto) % (20.0-45.0) Monocytes (%) (Auto) % (1.0-10.0) Eosinophils (%) (Auto) % (0.0-3.0) Basophils (%) (Auto) % (0.0-2.0) Neutrophils % (Manual) Pending Lymphocytes % (Manual) Pending Platelet Estimate Pending Platelet Morphology Pending Sodium Level 140 MMOL/L (136-145) Potassium Level 3.4 MMOL/L (3.5-5.1) L Chloride Level 110 MMOL/L (98-107) H Carbon Dioxide Level 21 MMOL/L (21-32) Anion Gap 9 mmol/L (5-15) Blood Urea Nitrogen 18 mg/dL (7-18) Creatinine 2.0 MG/DL (0.55-1.30) H Estimat Glomerular Filtration Rate 36.1 mL/min (>60) Glucose Level 138 MG/DL (74-106) H Hemoglobin A1c 5.1 % (4.3-6.0) Uric Acid 1.6 MG/DL (2.6-7.2) L Calcium Level 8.2 MG/DL (8.5-10.1) L Phosphorus Level 1.6 MG/DL (2.5-4.9) L Magnesium Level 1.8 MG/DL (1.8-2.4) Total Bilirubin 0.2 MG/DL (0.2-1.0) Gamma Glutamyl Transpeptidase 23 U/L (5-85) Aspartate Amino Transf (AST/SGOT) 10 U/L (15-37) L Alanine Aminotransferase (ALT/SGPT) 8 U/L (12-78) L Alkaline Phosphatase 87 U/L (46-116) Total Creatine Kinase 25 U/L (26-308) L Troponin I 0.008 ng/mL (0.000-0.056) Pro-B-Type Natriuretic Peptide 82 pg/mL (0-125) Total Protein 6.1 G/DL (6.4-8.2) L Albumin 2.4 G/DL (3.4-5.0) L Globulin 3.7 g/dL Albumin/Globulin Ratio 0.6 (1.0-2.7) L Triglycerides Level 39 MG/DL (30-150) Cholesterol Level 76 MG/DL (< 200) LDL Cholesterol 33 mg/dL (<100) HDL Cholesterol 41 MG/DL (40-60) Cholesterol/HDL Ratio 1.9 (3.3-4.4) L Current Medications Medications (Trade) Dose Ordered Sig/Misty Route PRN Reason Start Time Stop Time Status Last Admin Dose Admin Acetaminophen (Tylenol) 650 mg Q4H PRN ORAL Mild Pain/Temp > 100.5 09/21/17 09:30 10/21/17 09:29 Albuterol/ Ipratropium (Albuterol/ Ipratropium) 3 ml Q4H PRN HHN Shortness of Breath 09/20/17 17:30 09/25/17 17:29 Cefepime HCl 2 gm/ Dextrose 110 ml @ 220 mls/hr Q24H IV 09/21/17 09:00 09/28/17 08:59 09/21/17 09:09 Dextrose (Dextrose 50%) STAT PRN IV Hypoglycemia 09/20/17 17:30 10/20/17 17:29 Heparin Sodium (Porcine) (Heparin 5000 units/ml) 5,000 units EVERY 12 HOURS SUBQ 09/20/17 21:00 10/20/17 08:59 09/21/17 09:10 Lansoprazole (Prevacid) 30 mg DAILY ORAL 09/21/17 09:00 10/20/17 14:59 09/21/17 09:08 Lorazepam (Ativan 2mg/ml 1ml) 2 mg Q2H PRN IV For Anxiety 09/20/17 17:30 09/27/17 17:29 09/20/17 20:42 Ondansetron HCl (Zofran) 4 mg Q6H PRN IVP Nausea & Vomiting 09/20/17 17:30 10/20/17 17:29 Polyethylene Glycol (Miralax) 17 gm DAILYPRN PRN ORAL Constipation 09/20/17 17:30 10/20/17 17:29 Potassium Chloride 40 meq/ Sodium Chloride 1,020 ml @ 50 mls/hr [id number] IV 09/20/17 17:30 09/21/17 16:59 09/21/17 03:35 Potassium Chloride 40 meq/ Sodium Chloride 1,020 ml @ 50 mls/hr [id number] IV 09/21/17 17:00 10/21/17 16:59 Potassium Phosphate 30 mm/ Dextrose 285 ml @ 47.5 mls/hr ONCE ONCE IV 09/21/17 11:00 09/21/17 16:59 Potassium Chloride (K-Dur) 40 meq DAILY ORAL 09/21/17 09:00 10/20/17 14:59 09/21/17 09:08 Trimethoprim/ Sulfamethoxazole (Bactrim-DS) 1 tab 3XW ORAL 09/21/17 09:00 09/28/17 08:59 09/21/17 09:08 PRECIOUS HODGSON M.D. Sep 21, 2017 10:27
--- NOTE | 2017-09-21 10:44 | Nephrology Progress Note ---
Assessment/Plan Problem List: (1) Hypokalemia Assessment: persistant (2) HIV (human immunodeficiency virus infection) (3) Renal failure (ARF), acute on chronic Assessment CKD with proteinuria ? HIV related HypoKalemia persistant denies diarrhea HIV Purlulent bronchitis h/o Lymphoma Plan Plan: Hydrate- Urine K : pending 24 h urine protein K supplement trial aldactone urine studies Kidney LEIGH Neg 2D Echo Neg Per ID Subjective ROS Limited/Unobtainable: No Constitutional: Reports: other - stronger- denies diarrhea Objective Objective Last 24 Hour Vital Signs Date Time Temp Pulse Resp B/P (MAP) Pulse Ox O2 Delivery O2 Flow Rate FiO2 09/21/17 08:00 97.9 86 20 90/68 98 09/21/17 07:56 80 16 Room Air 09/21/17 04:06 98.0 80 20 91/59 99 09/20/17 21:36 99.4 09/20/17 20:00 100.3 101 20 88/57 99 09/20/17 16:00 97.9 92 20 105/52 99 09/20/17 12:00 95 09/20/17 12:00 97.2 98 20 104/58 98 Intake and Output 09/20/17 09/21/17 19:00 07:00 Intake Total 1265 ml 900 ml Balance 1265 ml 900 ml Intake Oral 780 ml IV Total 485 ml 900 ml # Voids 5 2 Laboratory Tests 09/20/17 11:17: Urine Color Pale yellow, Urine Appearance Clear, Urine pH 7, Urine Specific [place] 1.010, Urine Protein 2+H, Urine Glucose (UA) 2+H, Urine Ketones Negative , Urine Occult Blood Negative, Urine Nitrite Negative, Urine Bilirubin Negative , Urine Urobilinogen Normal, Urine Leukocyte Esterase Negative, Urine RBC 0, Urine WBC 0-2, Urine Squamous Epithelial Cells Occasional, Urine Bacteria Occasional, Urine Eosinophils None seen, Urine Random Sodium 66, Urine Potassium Timed 5L 09/21/17 06:50: White Blood Count 3.0L, Red Blood Count 3.20L, Hemoglobin 10.2L, Hematocrit 31.6L, Mean Corpuscular Volume 99, Mean Corpuscular Hemoglobin 32.0H, Mean Corpuscular Hemoglobin Concent 32.4, Red Cell Distribution Width 14.0, Platelet Count 152, Mean Platelet Volume 6.5, Neutrophils (%) (Auto) , Lymphocytes (%) ( Auto) , Monocytes (%) (Auto) , Eosinophils (%) (Auto) , Basophils (%) (Auto) , Neutrophils % (Manual) [Pending], Lymphocytes % (Manual) [Pending], Platelet Estimate [Pending], Platelet Morphology [Pending], Sodium Level 140, Potassium Level 3.4L, Chloride Level 110H, Carbon Dioxide Level 21, Anion Gap 9, Blood Urea Nitrogen 18, Creatinine 2.0H, Estimat Glomerular Filtration Rate 36.1, Glucose Level 138H, Hemoglobin A1c 5.1, Uric Acid 1.6L, Calcium Level 8.2L, Phosphorus Level 1.6L, Magnesium Level 1.8, Total Bilirubin 0.2, Gamma Glutamyl Transpeptidase 23, Aspartate Amino Transf (AST/SGOT) 10L, Alanine Aminotransferase (ALT/SGPT) 8L, Alkaline Phosphatase 87, Total Creatine Kinase 25L, Troponin I 0.008, Pro-B-Type Natriuretic Peptide 82, Total Protein 6.1L, Albumin 2.4L, Globulin 3.7, Albumin/Globulin Ratio 0.6L, Triglycerides Level 39 , Cholesterol Level 76, LDL Cholesterol 33, HDL Cholesterol 41, Cholesterol/HDL Ratio 1.9L Height (Feet): 6 Height (Inches): 0.00 Weight (Pounds): 180 General Appearance: no apparent distress Cardiovascular: normal rate Respiratory/Chest: decreased breath sounds Abdomen: soft TEREAS WALKER Sep 21, 2017 10:43
[2017-09-21] MEDS ORDERED: Potassium Phosphate 30 MM in D5W 275 ML IV ONE (11:00)
[2017-09-21] MEDS ORDERED: Spironolactone 25mg tab ORAL ONE (11:00)
[2017-09-21 12:00] VITALS: BP 107/63
[2017-09-21] MEDS: Azithromycin 500 MG in D5W 275 ML IV SCH (13:01)
[2017-09-21] MEDS: LORazepam Inj 2mg/ml 1ml IV PRN (13:47)
[2017-09-21] MEDS: Ritonavir 100mg tab ORAL SCH (15:59)
[2017-09-21] MEDS: Epzicom tab ORAL SCH (15:59)
--- NOTE | 2017-09-21 16:14 | Pulmonology Progress Note ---
Assessment/Plan Problems: (1) History of leukemia (2) Purulent bronchitis (3) Hypokalemia (4) Generalized weakness (5) History of lymphoma (6) HIV (human immunodeficiency virus infection) (7) Renal failure (ARF), acute on chronic Assessment/Plan improving renal function better check cultures viral load pending mg, K supplement. Subjective ROS Limited/Unobtainable: No Interval Events: feeling better Constitutional: Reports: no symptoms HEENT: Repors: no symptoms Allergies: Coded Allergies: HYDROMORPHONE (Verified Allergy, Unknown, Shortness of Breath, 09/20/17) LEVOFLOXACIN (Verified Allergy, Unknown, 09/19/17) Objective Last 24 Hour Vital Signs Date Time Temp Pulse Resp B/P (MAP) Pulse Ox O2 Delivery O2 Flow Rate FiO2 09/21/17 12:00 96.3 89 18 107/63 97 09/21/17 08:00 97.9 86 20 90/68 98 09/21/17 07:56 80 16 Room Air 09/21/17 04:06 98.0 80 20 91/59 99 09/20/17 21:36 99.4 09/20/17 20:00 100.3 101 20 88/57 99 Intake and Output 09/20/17 09/21/17 19:00 07:00 Intake Total 1265 ml 900 ml Balance 1265 ml 900 ml Intake Oral 780 ml IV Total 485 ml 900 ml # Voids 5 2 General Appearance: cachetic HEENT: normocephalic, atraumatic Respiratory/Chest: chest wall non-tender, lungs clear, chest wall tender Cardiovascular: normal peripheral pulses, regular rhythm Abdomen: normal bowel sounds, non distended Genitourinary: normal external genitalia Extremities: no clubbing Microbiology Date/Time Source Procedure Growth Status 09/20/17 10:48 Sputum Gram Stain - Final Resulted 09/20/17 10:48 Sputum Sputum Culture Pending Resulted 09/19/17 21:00 Nasal Nares Influenza Types A,B Antigen (GENET) - Final Complete Laboratory Tests 09/21/17 06:50: White Blood Count 3.0L, Red Blood Count 3.20L, Hemoglobin 10.2L, Hematocrit 31.6L, Mean Corpuscular Volume 99, Mean Corpuscular Hemoglobin 32.0H, Mean Corpuscular Hemoglobin Concent 32.4, Red Cell Distribution Width 14.0, Platelet Count 152, Mean Platelet Volume 6.5, Neutrophils (%) (Auto) , Lymphocytes (%) ( Auto) , Monocytes (%) (Auto) , Eosinophils (%) (Auto) , Basophils (%) (Auto) , Differential Total Cells Counted 100, Neutrophils % (Manual) 35L, Lymphocytes % (Manual) 34, Monocytes % (Manual) 27H, Eosinophils % (Manual) 3, Basophils % ( Manual) 1, Band Neutrophils 0, Platelet Estimate Adequate, Platelet Morphology Normal, Hypochromasia 1+, Anisocytosis 1+, Sodium Level 140, Potassium Level 3.4L, Chloride Level 110H, Carbon Dioxide Level 21, Anion Gap 9, Blood Urea Nitrogen 18, Creatinine 2.0H, Estimat Glomerular Filtration Rate 36.1, Glucose Level 138H, Hemoglobin A1c 5.1, Uric Acid 1.6L, Calcium Level 8.2L, Phosphorus Level 1.6L, Magnesium Level 1.8, Total Bilirubin 0.2, Gamma Glutamyl Transpeptidase 23, Aspartate Amino Transf (AST/SGOT) 10L, Alanine Aminotransferase (ALT/SGPT) 8L, Alkaline Phosphatase 87, Total Creatine Kinase 25L, Troponin I 0.008, Pro-B-Type Natriuretic Peptide 82, Total Protein 6.1L, Albumin 2.4L, Globulin 3.7, Albumin/Globulin Ratio 0.6L, Triglycerides Level 39 , Cholesterol Level 76, LDL Cholesterol 33, HDL Cholesterol 41, Cholesterol/HDL Ratio 1.9L 09/21/17 11:25: Urine Potassium Timed 7L Current Medications Medications (Trade) Dose Ordered Sig/Misty Route PRN Reason Start Time Stop Time Status Last Admin Dose Admin Abacavir/ Lamivudine (Epzicom) 1 tab DAILY ORAL 09/21/17 15:00 10/21/17 14:59 09/21/17 15:59 Acetaminophen (Tylenol) 650 mg Q4H PRN ORAL Mild Pain/Temp > 100.5 09/21/17 09:30 10/21/17 09:29 Albuterol/ Ipratropium (Albuterol/ Ipratropium) 3 ml Q4H PRN HHN Shortness of Breath 09/20/17 17:30 09/25/17 17:29 Azithromycin 500 mg/Dextrose 275 ml @ 275 mls/hr Q24HRS IV 09/21/17 12:00 09/27/17 12:59 09/21/17 13:01 Darunavir (Prezista) 800 mg DAILY ORAL 09/21/17 15:00 10/21/17 14:59 09/21/17 15:55 Dextrose (Dextrose 50%) STAT PRN IV Hypoglycemia 09/20/17 17:30 10/20/17 17:29 Heparin Sodium (Porcine) (Heparin 5000 units/ml) 5,000 units EVERY 12 HOURS SUBQ 09/20/17 21:00 10/20/17 08:59 09/21/17 09:10 Lansoprazole (Prevacid) 30 mg DAILY ORAL 09/21/17 09:00 10/20/17 14:59 09/21/17 09:08 Lorazepam (Ativan 2mg/ml 1ml) 2 mg Q2H PRN IV For Anxiety 09/20/17 17:30 09/27/17 17:29 09/21/17 13:47 Ondansetron HCl (Zofran) 4 mg Q6H PRN IVP Nausea & Vomiting 09/20/17 17:30 10/20/17 17:29 09/21/17 12:54 Polyethylene Glycol (Miralax) 17 gm DAILYPRN PRN ORAL Constipation 09/20/17 17:30 10/20/17 17:29 Potassium Chloride 40 meq/ Sodium Chloride 1,020 ml @ 50 mls/hr [id number] IV 09/20/17 17:30 09/21/17 16:59 09/21/17 03:35 Potassium Chloride 40 meq/ Sodium Chloride 1,020 ml @ 50 mls/hr [id number] IV 09/21/17 17:00 10/21/17 16:59 Potassium Phosphate 30 mm/ Dextrose 285 ml @ 47.5 mls/hr ONCE ONCE IV 09/21/17 11:00 09/21/17 16:59 09/21/17 11:22 Potassium Chloride (K-Dur) 40 meq DAILY ORAL 09/21/17 09:00 10/20/17 14:59 09/21/17 09:08 Ritonavir (Norvir) 100 mg DAILY ORAL 09/21/17 15:00 10/21/17 14:59 09/21/17 15:59 Spironolactone (Aldactone) 25 mg EVERY 12 HOURS ORAL 09/21/17 21:00 10/21/17 20:59 Trimethoprim/ Sulfamethoxazole (Bactrim-DS) 1 tab 3XW ORAL 09/21/17 09:00 09/28/17 08:59 09/21/17 09:08 EMILY TRIMBLE Sep 21, 2017 16:14
--- NOTE | 2017-09-21 19:42 | Cardiology Progress Note ---
Assessment/Plan Assessment/Plan 1. Possible viral upper respiratory tract infection versus bacterial. 2. History of Burkitt's lymphoma status post stem cell transplantation. 3. Human immunodeficiency virus/acquired immune deficiency syndrome. 4. Chronic renal insufficiency. 5. Adjustment disorder. monocytes increased ? bp borderlien getting ivf abx off tele now Subjective Cardiovascular: Denies: chest pain, lightheadedness Respiratory: Denies: shortness of breath Gastrointestinal/Abdominal: Denies: abdominal pain, vomiting Genitourinary: Denies: burning Objective Last 24 Hour Vital Signs Date Time Temp Pulse Resp B/P (MAP) Pulse Ox O2 Delivery O2 Flow Rate FiO2 09/21/17 12:00 96.3 89 18 107/63 97 09/21/17 08:00 97.9 86 20 90/68 98 09/21/17 07:56 80 16 Room Air 09/21/17 04:06 98.0 80 20 91/59 99 09/20/17 21:36 99.4 09/20/17 20:00 100.3 101 20 88/57 99 General Appearance: no apparent distress Cardiovascular: normal rate, regular rhythm Respiratory/Chest: lungs clear, normal breath sounds Abdomen: normal bowel sounds, non tender, soft Extremities: no swelling Intake and Output 09/20/17 09/21/17 19:00 07:00 Intake Total 1265 ml 900 ml Balance 1265 ml 900 ml Intake Oral 780 ml IV Total 485 ml 900 ml # Voids 5 2 Laboratory Tests Test 09/21/17 06:50 09/21/17 11:25 White Blood Count 3.0 K/UL (4.8-10.8) L Red Blood Count 3.20 M/UL (4.70-6.10) L Hemoglobin 10.2 G/DL (14.2-18.0) L Hematocrit 31.6 % (42.0-52.0) L Mean Corpuscular Volume 99 FL (80-99) Mean Corpuscular Hemoglobin 32.0 PG (27.0-31.0) H Mean Corpuscular Hemoglobin Concent 32.4 G/DL (32.0-36.0) Red Cell Distribution Width 14.0 % (11.6-14.8) Platelet Count 152 K/UL (150-450) Mean Platelet Volume 6.5 FL (6.5-10.1) Neutrophils (%) (Auto) % (45.0-75.0) Lymphocytes (%) (Auto) % (20.0-45.0) Monocytes (%) (Auto) % (1.0-10.0) Eosinophils (%) (Auto) % (0.0-3.0) Basophils (%) (Auto) % (0.0-2.0) Differential Total Cells Counted 100 Neutrophils % (Manual) 35 % (45-75) L Lymphocytes % (Manual) 34 % (20-45) Monocytes % (Manual) 27 % (1-10) H Eosinophils % (Manual) 3 % (0-3) Basophils % (Manual) 1 % (0-2) Band Neutrophils 0 % (0-8) Platelet Estimate Adequate Platelet Morphology Normal Hypochromasia 1+ Anisocytosis 1+ Sodium Level 140 MMOL/L (136-145) Potassium Level 3.4 MMOL/L (3.5-5.1) L Chloride Level 110 MMOL/L (98-107) H Carbon Dioxide Level 21 MMOL/L (21-32) Anion Gap 9 mmol/L (5-15) Blood Urea Nitrogen 18 mg/dL (7-18) Creatinine 2.0 MG/DL (0.55-1.30) H Estimat Glomerular Filtration Rate 36.1 mL/min (>60) Glucose Level 138 MG/DL (74-106) H Hemoglobin A1c 5.1 % (4.3-6.0) Uric Acid 1.6 MG/DL (2.6-7.2) L Calcium Level 8.2 MG/DL (8.5-10.1) L Phosphorus Level 1.6 MG/DL (2.5-4.9) L Magnesium Level 1.8 MG/DL (1.8-2.4) Total Bilirubin 0.2 MG/DL (0.2-1.0) Gamma Glutamyl Transpeptidase 23 U/L (5-85) Aspartate Amino Transf (AST/SGOT) 10 U/L (15-37) L Alanine Aminotransferase (ALT/SGPT) 8 U/L (12-78) L Alkaline Phosphatase 87 U/L (46-116) Total Creatine Kinase 25 U/L (26-308) L Troponin I 0.008 ng/mL (0.000-0.056) Pro-B-Type Natriuretic Peptide 82 pg/mL (0-125) Total Protein 6.1 G/DL (6.4-8.2) L Albumin 2.4 G/DL (3.4-5.0) L Globulin 3.7 g/dL Albumin/Globulin Ratio 0.6 (1.0-2.7) L Triglycerides Level 39 MG/DL (30-150) Cholesterol Level 76 MG/DL (< 200) LDL Cholesterol 33 mg/dL (<100) HDL Cholesterol 41 MG/DL (40-60) Cholesterol/HDL Ratio 1.9 (3.3-4.4) L Urine Potassium Timed 7 mmol/L (12-62) L Microbiology Date/Time Source Procedure Growth Status 09/20/17 10:48 Sputum Gram Stain - Final Resulted 09/20/17 10:48 Sputum Sputum Culture Pending Resulted 09/19/17 21:00 Nasal Nares Influenza Types A,B Antigen (GENET) - Final Complete LEWIS NOGUERA Sep 21, 2017 19:42
[2017-09-21 20:00] VITALS: BP 90/57
[2017-09-21] MEDS: Spironolactone 25mg tab ORAL SCH (20:44)
[2017-09-22] VITALS: BP 93/50
[2017-09-22] MEDS: LORazepam Inj 2mg/ml 1ml IV PRN ×3 (01:33→20:49)
[2017-09-22 01:35] VITALS: BP 98/57
[2017-09-22 04:00] VITALS: BP 102/56
[2017-09-22 08:00] VITALS: BP 99/48
[2017-09-22 08:42] LABS: ALANINE AMINOTRANSFERASE 8 U/L (12-78); ALBUMIN 2.7 G/DL (3.4-5.0); ALBUMIN/GLOBULIN RATIO 0.7 (1.0-2.7); ALKALINE PHOSPHATASE 84 U/L (46-116); ANION GAP 12 mmol/L (5-15); ASPARTATE AMINO TRANSFERASE 14 U/L (15-37); BILIRUBIN,TOTAL 0.2 MG/DL (0.2-1.0); BLOOD UREA NITROGEN 18 mg/dL (7-18); CALCIUM 8.4 MG/DL (8.5-10.1); CARBON DIOXIDE 19 MMOL/L (21-32); CHLORIDE 107 MMOL/L (98-107); FERRITIN 791 NG/ML (8-388); PHOSPHORUS 2.4 MG/DL (2.5-4.9); POTASSIUM 4.2 MMOL/L (3.5-5.1); SODIUM 138 MMOL/L (136-145)
[2017-09-22] MEDS: Spironolactone 25mg tab ORAL SCH ×2 (09:14→20:49)
[2017-09-22] MEDS: Epzicom tab ORAL SCH (09:14)
[2017-09-22] MEDS: Ritonavir 100mg tab ORAL SCH (09:15)
[2017-09-22] MEDS: Heparin 5000 units/ml inj SUBQ SCH ×2 (09:17→20:50)
[2017-09-22 09:22] LABS: IRON 144 ug/dL (50-175)
[2017-09-22 09:23] LABS: % IRON SATURATION 50 % (15-50); TOTAL IRON BINDING CAPACITY 287 ug/dL (250-450)
[2017-09-22] MEDS: Azithromycin 500 MG in D5W 275 ML IV SCH (11:14)
[2017-09-22 12:00] VITALS: BP 101/50
[2017-09-22] MEDS: Potassium Chloride 40 MEQ in 1/2 NS 1000ml 1,000 ML IV SCH (13:53)
--- NOTE | 2017-09-22 14:53 | Nephrology Progress Note ---
Assessment/Plan Problem List: (1) Hypokalemia Assessment: persistant (2) HIV (human immunodeficiency virus infection) (3) Renal failure (ARF), acute on chronic Assessment CKD with proteinuria ? HIV related HypoKalemia persistant denies diarrhea - improved HIV Purlulent bronchitis h/o Lymphoma Plan Plan: stop PO and IV potassium stop Hydrate- Urine K : low 24 h urine protein 2.25 gr K supplement trial aldactone urine studies Kidney LEIGH Neg 2D Echo Neg Per ID Subjective ROS Limited/Unobtainable: No Constitutional: Reports: malaise Objective Objective Last 24 Hour Vital Signs Date Time Temp Pulse Resp B/P (MAP) Pulse Ox O2 Delivery O2 Flow Rate FiO2 09/22/17 12:00 98.0 82 20 101/50 97 09/22/17 08:00 97.9 85 20 99/48 99 09/22/17 07:35 81 18 Room Air 09/22/17 04:00 97.9 82 19 102/56 99 Room Air 09/22/17 01:35 98/57 09/22/17 00:00 98.1 89 20 93/50 98 09/21/17 21:05 90 18 Room Air 09/21/17 20:00 98.1 98 20 90/57 96 Intake and Output 09/21/17 09/22/17 19:00 07:00 Intake Total 2470.0 ml 850 ml Output Total 1350 ml Balance 2470.0 ml -500 ml Intake Oral 1600 ml 250 ml IV Total 870.0 ml 600 ml Output Urine Total 1350 ml # Voids 5 2 # Bowel Movements 1 Laboratory Tests 09/22/17 07:00: Sodium Level 138, Potassium Level 4.2, Chloride Level 107, Carbon Dioxide Level 19L, Anion Gap 12, Blood Urea Nitrogen 18, Creatinine 2.0H, Estimat Glomerular Filtration Rate 36.1, Glucose Level 81, Uric Acid 2.0L, Calcium Level 8.4L, Phosphorus Level 2.4L, Magnesium Level 2.0, Iron Level 144, Total Iron Binding Capacity 287, Percent Iron Saturation 50, Unsaturated Iron Binding 143, Ferritin 791H, Total Bilirubin 0.2, Aspartate Amino Transf (AST/SGOT) 14L, Alanine Aminotransferase (ALT/SGPT) 8L, Alkaline Phosphatase 84, Total Protein 6.7, Albumin 2.7L, Globulin 4.0, Albumin/Globulin Ratio 0.7L, Vitamin B12 Level 269, Folate 4.4L Height (Feet): 6 Height (Inches): 0.00 Weight (Pounds): 180 General Appearance: no apparent distress Cardiovascular: normal rate Respiratory/Chest: decreased breath sounds Abdomen: soft Objective no change TERESA WALKER Sep 22, 2017 14:53
--- NOTE | 2017-09-22 15:14 | Pulmonology Progress Note ---
Assessment/Plan Problems: (1) History of leukemia (2) Purulent bronchitis (3) Hypokalemia (4) Generalized weakness (5) History of lymphoma (6) HIV (human immunodeficiency virus infection) (7) Renal failure (ARF), acute on chronic Assessment/Plan improving renal function better check cultures viral load pending mg, K supplement. Subjective ROS Limited/Unobtainable: No Constitutional: Reports: no symptoms HEENT: Repors: no symptoms Respiratory: Reports: no symptoms Allergies: Coded Allergies: HYDROMORPHONE (Verified Allergy, Unknown, Shortness of Breath, 09/20/17) LEVOFLOXACIN (Verified Allergy, Unknown, 09/19/17) Objective Last 24 Hour Vital Signs Date Time Temp Pulse Resp B/P (MAP) Pulse Ox O2 Delivery O2 Flow Rate FiO2 09/22/17 12:00 98.0 82 20 101/50 97 09/22/17 08:00 97.9 85 20 99/48 99 09/22/17 07:35 81 18 Room Air 09/22/17 04:00 97.9 82 19 102/56 99 Room Air 09/22/17 01:35 98/57 09/22/17 00:00 98.1 89 20 93/50 98 09/21/17 21:05 90 18 Room Air 09/21/17 20:00 98.1 98 20 90/57 96 Intake and Output 09/21/17 09/22/17 19:00 07:00 Intake Total 2470.0 ml 850 ml Output Total 1350 ml Balance 2470.0 ml -500 ml Intake Oral 1600 ml 250 ml IV Total 870.0 ml 600 ml Output Urine Total 1350 ml # Voids 5 2 # Bowel Movements 1 General Appearance: WD/WN HEENT: normocephalic Respiratory/Chest: chest wall non-tender, normal breath sounds Cardiovascular: normal peripheral pulses, regular rhythm Abdomen: normal bowel sounds, soft, non tender Genitourinary: normal external genitalia Skin: no rash Neurologic/Psychiatric: emergency management specialist II-XII grossly normal, normal mood/affect Microbiology Date/Time Source Procedure Growth Status 09/20/17 10:48 Sputum Gram Stain - Final Resulted 09/20/17 10:48 Sputum Culture - Preliminary Staphylococcus Aureus Usual Upper Respiratory Nohemy Resulted 09/19/17 21:00 Nasal Nares Influenza Types A,B Antigen (GENET) - Final Complete Laboratory Tests 09/22/17 07:00: Sodium Level 138, Potassium Level 4.2, Chloride Level 107, Carbon Dioxide Level 19L, Anion Gap 12, Blood Urea Nitrogen 18, Creatinine 2.0H, Estimat Glomerular Filtration Rate 36.1, Glucose Level 81, Uric Acid 2.0L, Calcium Level 8.4L, Phosphorus Level 2.4L, Magnesium Level 2.0, Iron Level 144, Total Iron Binding Capacity 287, Percent Iron Saturation 50, Unsaturated Iron Binding 143, Ferritin 791H, Total Bilirubin 0.2, Aspartate Amino Transf (AST/SGOT) 14L, Alanine Aminotransferase (ALT/SGPT) 8L, Alkaline Phosphatase 84, Total Protein 6.7, Albumin 2.7L, Globulin 4.0, Albumin/Globulin Ratio 0.7L, Vitamin B12 Level 269, Folate 4.4L Current Medications Medications (Trade) Dose Ordered Sig/Misty Route PRN Reason Start Time Stop Time Status Last Admin Dose Admin Abacavir/ Lamivudine (Epzicom) 1 tab DAILY ORAL 09/21/17 15:00 10/21/17 14:59 09/22/17 09:14 Acetaminophen (Tylenol) 650 mg Q4H PRN ORAL Mild Pain/Temp > 100.5 09/21/17 09:30 10/21/17 09:29 Albuterol/ Ipratropium (Albuterol/ Ipratropium) 3 ml Q4H PRN HHN Shortness of Breath 09/20/17 17:30 09/25/17 17:29 Azithromycin 500 mg/Dextrose 275 ml @ 275 mls/hr Q24HRS IV 09/21/17 12:00 09/27/17 12:59 09/22/17 11:14 Darunavir (Prezista) 800 mg DAILY ORAL 09/21/17 15:00 10/21/17 14:59 09/22/17 09:14 Dextrose (Dextrose 50%) STAT PRN IV Hypoglycemia 09/20/17 17:30 10/20/17 17:29 Heparin Sodium (Porcine) (Heparin 5000 units/ml) 5,000 units EVERY 12 HOURS SUBQ 09/20/17 21:00 10/20/17 08:59 09/22/17 09:17 Lansoprazole (Prevacid) 30 mg DAILY ORAL 09/21/17 09:00 10/20/17 14:59 09/22/17 09:14 Lorazepam (Ativan 2mg/ml 1ml) 2 mg Q2H PRN IV For Anxiety 09/20/17 17:30 09/27/17 17:29 09/22/17 13:54 Ondansetron HCl (Zofran) 4 mg Q6H PRN IVP Nausea & Vomiting 09/20/17 17:30 10/20/17 17:29 09/21/17 12:54 Phosphorus (Phospha 250 Neutral) 500 mg ONCE ONCE ORAL 09/22/17 15:30 09/22/17 15:31 Polyethylene Glycol (Miralax) 17 gm DAILYPRN PRN ORAL Constipation 09/20/17 17:30 10/20/17 17:29 Ritonavir (Norvir) 100 mg DAILY ORAL 09/21/17 15:00 10/21/17 14:59 09/22/17 09:15 Spironolactone (Aldactone) 25 mg EVERY 12 HOURS ORAL 09/21/17 21:00 10/21/17 20:59 09/22/17 09:14 Temazepam (Restoril) 15 mg HSPRN PRN ORAL Insomnia 09/22/17 07:45 09/29/17 07:44 Trimethoprim/ Sulfamethoxazole (Bactrim-DS) 1 tab 3XW ORAL 09/21/17 09:00 09/28/17 08:59 09/21/17 09:08 EMILY TRIMBLE Sep 22, 2017 15:14
[2017-09-22] MEDS ORDERED: Phospha 250 Neutral tab ORAL ONE (15:30)
[2017-09-22 20:00] VITALS: BP 100/58
[2017-09-23 06:38] LABS: BASOPHILS % (AUTO) 1.9 % (0.0-2.0); EOSINOPHILS % (AUTO) 2.4 % (0.0-3.0); HEMOGLOBIN 11.9 G/DL (14.2-18.0); LYMPHOCYTES % (AUTO) 52.1 % (20.0-45.0); MEAN CORPUSCULAR VOLUME 98 FL (80-99); MONOCYTES % (AUTO) 15.6 % (1.0-10.0); PLATELET COUNT 183 K/UL (150-450); RED BLOOD COUNT 3.69 M/UL (4.70-6.10); RED CELL DISTRIBUTION WIDTH 13.6 % (11.6-14.8); WHITE BLOOD COUNT 4.1 K/UL (4.8-10.8)
[2017-09-23 07:13] LABS: ALANINE AMINOTRANSFERASE 13 U/L (12-78); ALBUMIN/GLOBULIN RATIO 0.7 (1.0-2.7); ALKALINE PHOSPHATASE 94 U/L (46-116); ANION GAP 9 mmol/L (5-15); ASPARTATE AMINO TRANSFERASE 16 U/L (15-37); BILIRUBIN,TOTAL 0.3 MG/DL (0.2-1.0); BLOOD UREA NITROGEN 21 mg/dL (7-18); CALCIUM 8.8 MG/DL (8.5-10.1); CARBON DIOXIDE 23 MMOL/L (21-32); CHLORIDE 104 MMOL/L (98-107); CREATININE 2.1 MG/DL (0.55-1.30); PHOSPHORUS 3.3 MG/DL (2.5-4.9); POTASSIUM 4.3 MMOL/L (3.5-5.1); SODIUM 136 MMOL/L (136-145)
[2017-09-23 08:00] VITALS: BP 95/62
[2017-09-23] MEDS: Spironolactone 25mg tab ORAL SCH (08:42)
[2017-09-23] MEDS: Bactrim-DS 1 tab ORAL SCH (08:42)
[2017-09-23] MEDS: Epzicom tab ORAL SCH (08:42)
[2017-09-23] MEDS: Ritonavir 100mg tab ORAL SCH (08:42)
[2017-09-23] MEDS: Heparin 5000 units/ml inj SUBQ SCH (08:43)
--- NOTE | 2017-09-23 10:48 | Infectious Diseases Prog Note ---
Assessment/Plan Assessment/Plan A: ASSESSMENT Bronchitis ? less likely community-acquired pneumonia. (Scx : MSSA : contaminant , cxray : [facility] ) History of HIV/AIDS, CD4 count recently 137 Rapid influenza A test negative Chest x-ray, [facility] Chest discomfort and shortness of breath, probably due to anxiety. History of non-Hodgkin's lymphoma, diagnosed 10 years ago status post bone marrow transplant History of diverticulitis History of cholecystectomy. Anxiety CKD PLAN: cont Zithromax d# 4/ 5 cont pt on Prezista, Norvir , 3TC, Abacavir, and and Bactrim for PCP prophylaxis. 09/21 SP cefepime d# 2 09/20 SP vancomycin d# 1 Monitor CBC. Monitor BMP. Monitor chest x-ray, stat , if infiltrate will add Keflex Subjective Constitutional: Denies: no symptoms, fever, chills, fatigue, anorexia, drenching sweats, other Allergies: Coded Allergies: HYDROMORPHONE (Verified Allergy, Unknown, Shortness of Breath, 09/20/17) LEVOFLOXACIN (Verified Allergy, Unknown, 09/19/17) Objective Vital Signs Last 24 Hour Vital Signs Date Time Temp Pulse Resp B/P (MAP) Pulse Ox O2 Delivery O2 Flow Rate FiO2 09/23/17 08:23 91 16 Room Air 09/23/17 08:00 97.9 99 20 95/62 99 Room Air 09/22/17 20:00 97.9 80 20 100/58 98 Room Air 09/22/17 19:51 96 18 Room Air 09/22/17 12:00 98.0 82 20 101/50 97 09/22/17 12:00 Room Air Height (Feet): 6 Height (Inches): 0.00 Weight (Pounds): 180 HEENT: anicteric Respiratory/Chest: normal breath sounds Cardiovascular: regular rhythm Abdomen: no organomegaly Microbiology Date/Time Source Procedure Growth Status 09/20/17 10:48 Sputum Gram Stain - Final Complete 09/20/17 10:48 Sputum Culture - Final Staphylococcus Aureus Usual Upper Respiratory Nohemy Complete Laboratory Tests Test 09/23/17 05:10 White Blood Count 4.1 K/UL (4.8-10.8) L Red Blood Count 3.69 M/UL (4.70-6.10) L Hemoglobin 11.9 G/DL (14.2-18.0) L Hematocrit 36.0 % (42.0-52.0) L Mean Corpuscular Volume 98 FL (80-99) Mean Corpuscular Hemoglobin 32.4 PG (27.0-31.0) H Mean Corpuscular Hemoglobin Concent 33.1 G/DL (32.0-36.0) Red Cell Distribution Width 13.6 % (11.6-14.8) Platelet Count 183 K/UL (150-450) Mean Platelet Volume 6.7 FL (6.5-10.1) Neutrophils (%) (Auto) 28.0 % (45.0-75.0) L Lymphocytes (%) (Auto) 52.1 % (20.0-45.0) H Monocytes (%) (Auto) 15.6 % (1.0-10.0) H Eosinophils (%) (Auto) 2.4 % (0.0-3.0) Basophils (%) (Auto) 1.9 % (0.0-2.0) Sodium Level 136 MMOL/L (136-145) Potassium Level 4.3 MMOL/L (3.5-5.1) Chloride Level 104 MMOL/L (98-107) Carbon Dioxide Level 23 MMOL/L (21-32) Anion Gap 9 mmol/L (5-15) Blood Urea Nitrogen 21 mg/dL (7-18) H Creatinine 2.1 MG/DL (0.55-1.30) H Estimat Glomerular Filtration Rate 34.2 mL/min (>60) Glucose Level 81 MG/DL (74-106) Uric Acid 2.0 MG/DL (2.6-7.2) L Calcium Level 8.8 MG/DL (8.5-10.1) Phosphorus Level 3.3 MG/DL (2.5-4.9) Magnesium Level 2.1 MG/DL (1.8-2.4) Total Bilirubin 0.3 MG/DL (0.2-1.0) Aspartate Amino Transf (AST/SGOT) 16 U/L (15-37) Alanine Aminotransferase (ALT/SGPT) 13 U/L (12-78) Alkaline Phosphatase 94 U/L (46-116) Pro-B-Type Natriuretic Peptide 58 pg/mL (0-125) Total Protein 7.3 G/DL (6.4-8.2) Albumin 3.0 G/DL (3.4-5.0) L Globulin 4.3 g/dL Albumin/Globulin Ratio 0.7 (1.0-2.7) L Current Medications Medications (Trade) Dose Ordered Sig/Misty Route PRN Reason Start Time Stop Time Status Last Admin Dose Admin Abacavir/ Lamivudine (Epzicom) 1 tab DAILY ORAL 09/21/17 15:00 10/21/17 14:59 09/23/17 08:42 Acetaminophen (Tylenol) 650 mg Q4H PRN ORAL Mild Pain/Temp > 100.5 09/21/17 09:30 10/21/17 09:29 Albuterol/ Ipratropium (Albuterol/ Ipratropium) 3 ml Q4H PRN HHN Shortness of Breath 09/20/17 17:30 09/25/17 17:29 Azithromycin 500 mg/Dextrose 275 ml @ 275 mls/hr Q24HRS IV 09/21/17 12:00 09/27/17 12:59 09/22/17 11:14 Darunavir (Prezista) 800 mg DAILY ORAL 09/21/17 15:00 10/21/17 14:59 09/23/17 08:42 Dextrose (Dextrose 50%) STAT PRN IV Hypoglycemia 09/20/17 17:30 10/20/17 17:29 Heparin Sodium (Porcine) (Heparin 5000 units/ml) 5,000 units EVERY 12 HOURS SUBQ 09/20/17 21:00 10/20/17 08:59 09/23/17 08:43 Lansoprazole (Prevacid) 30 mg DAILY ORAL 09/21/17 09:00 10/20/17 14:59 09/23/17 08:42 Lorazepam (Ativan 2mg/ml 1ml) 2 mg Q2H PRN IV For Anxiety 09/20/17 17:30 09/27/17 17:29 09/22/17 20:49 Ondansetron HCl (Zofran) 4 mg Q6H PRN IVP Nausea & Vomiting 09/20/17 17:30 10/20/17 17:29 09/21/17 12:54 Polyethylene Glycol (Miralax) 17 gm DAILYPRN PRN ORAL Constipation 09/20/17 17:30 10/20/17 17:29 Ritonavir (Norvir) 100 mg DAILY ORAL 09/21/17 15:00 10/21/17 14:59 09/23/17 08:42 Spironolactone (Aldactone) 25 mg EVERY 12 HOURS ORAL 09/21/17 21:00 10/21/17 20:59 09/23/17 08:42 Temazepam (Restoril) 15 mg HSPRN PRN ORAL Insomnia 09/22/17 07:45 09/29/17 07:44 09/23/17 00:42 Trimethoprim/ Sulfamethoxazole (Bactrim-DS) 1 tab 3XW ORAL 09/21/17 09:00 09/28/17 08:59 09/23/17 08:42 PRECIOUS HODGSON M.D. Sep 23, 2017 10:48
[2017-09-23] MEDS ORDERED: Tubing IV Secondary IV ONE (11:19)
[2017-09-23] MEDS ORDERED: NS 500ML ONE (11:19)
[2017-09-23] MEDS ORDERED: 1/2 NS 1000ml IV ONE (11:19)
--- NOTE | 2017-09-23 11:29 | Nephrology Progress Note ---
Assessment/Plan Problem List: (1) Hypokalemia Assessment: persistant (2) HIV (human immunodeficiency virus infection) (3) Renal failure (ARF), acute on chronic Assessment CKD with proteinuria ? HIV related HypoKalemia persistant denies diarrhea - improved HIV Purlulent bronchitis h/o Lymphoma Plan Plan: stop PO and IV potassium stop Hydrate- Urine K : low 24 h urine protein 2.25 gr K supplement trial aldactone urine studies Kidney LEIGH Neg 2D Echo Neg Per ID Subjective ROS Limited/Unobtainable: No Constitutional: Reports: malaise Objective Objective Last 24 Hour Vital Signs Date Time Temp Pulse Resp B/P (MAP) Pulse Ox O2 Delivery O2 Flow Rate FiO2 09/23/17 08:23 91 16 Room Air 09/23/17 08:00 97.9 99 20 95/62 99 Room Air 09/22/17 20:00 97.9 80 20 100/58 98 Room Air 09/22/17 19:51 96 18 Room Air 09/22/17 12:00 98.0 82 20 101/50 97 09/22/17 12:00 Room Air Intake and Output 09/22/17 09/23/17 19:00 07:00 Intake Total 1875 ml 1000 ml Balance 1875 ml 1000 ml Intake Oral 1600 ml 1000 ml IV Total 275 ml # Voids 8 4 # Bowel Movements 1 Laboratory Tests 09/23/17 05:10: White Blood Count 4.1L, Red Blood Count 3.69L, Hemoglobin 11.9L, Hematocrit 36.0L, Mean Corpuscular Volume 98, Mean Corpuscular Hemoglobin 32.4H, Mean Corpuscular Hemoglobin Concent 33.1, Red Cell Distribution Width 13.6, Platelet Count 183, Mean Platelet Volume 6.7, Neutrophils (%) (Auto) 28.0L, Lymphocytes ( %) (Auto) 52.1H, Monocytes (%) (Auto) 15.6H, Eosinophils (%) (Auto) 2.4, Basophils (%) (Auto) 1.9, Sodium Level 136, Potassium Level 4.3, Chloride Level 104, Carbon Dioxide Level 23, Anion Gap 9, Blood Urea Nitrogen 21H, Creatinine 2.1H, Estimat Glomerular Filtration Rate 34.2, Glucose Level 81, Uric Acid 2.0L , Calcium Level 8.8, Phosphorus Level 3.3, Magnesium Level 2.1, Total Bilirubin 0.3, Aspartate Amino Transf (AST/SGOT) 16, Alanine Aminotransferase (ALT/SGPT) 13, Alkaline Phosphatase 94, Pro-B-Type Natriuretic Peptide 58, Total Protein 7.3, Albumin 3.0L, Globulin 4.3, Albumin/Globulin Ratio 0.7L Height (Feet): 6 Height (Inches): 0.00 Weight (Pounds): 180 General Appearance: no apparent distress Objective no change TERESA WALKER Sep 23, 2017 11:29
--- NOTE | 2017-09-23 11:38 | Diagnostic Imaging Report ---
APPROVED REPORT CPT Code: 16410 Present Symptoms Comments: R/O DVT BILATERAL: Imaging reveals a patent deep venous system bilaterally. There is no evidence of thrombus within the femoral, popliteal or tibial segments. The greater saphenous veins are also within normal limits. Doppler indicates normal spontaneous flow within these segments.
--- NOTE | 2017-09-26 12:15 | Discharge Summary ---
Discharge Summary Hospital Course Date of Admission Sep 19, 2017 at 22:35 Date of Discharge Sep 23, 2017 at 11:20 Admitting Diagnosis severe hypokalemia, pneumonia, renal insufficiency HPI Omar Kamara is a 47 year old male who was admitted on Sep 19, 2017 at 22: 35 for Severe Hypokalemia/Pneumonia/Renal Insufficiency Hospital Course dc summary #[id number] Discharge Medications Continued Medications: Abacavir Sulfate/Lamivudine (Epzicom Tablet) 1 Each Tablet Darunavir Ethanolate (Prezista) 800 Mg Tablet Ritonavir (Norvir) 100 Mg Tablet Discharge Condition Upon Discharge: stable Discharge Disposition Patient was discharged to Home (01) Discharge Diagnoses: Discharge Instructions Discharge Instructions Special Instructions I have been assigned to complete a D/C Summary on this account. I was not involved in the patient management Martha Coronel NP ([facility]) Sep 26, 2017 12:15
--- NOTE | 2017-09-27 03:00 | Discharge Summary 2 SIG ---
DATE OF ADMISSION: 09/19/2017 DATE OF DISCHARGE: 09/23/2017 REASON FOR ADMISSION: 47-year-old male with history of HIV with low CD4 count ( last 137), history of non-Hodgkin lymphoma, status post bone marrow transplant, presented with complaints of productive cough and increased generalized weakness. Phlegm described as thick in consistency and green in color. Upon evaluation in emergency department, the patient was tachycardic. EKG showed sinus tachycardia, no acute ischemic changes. Troponin was negative. ProBNP -180. CK within normal limits. Lipase -97. Chest x-ray revealed no acute cardiopulmonary pathology. Urinalysis was negative. BUN- 17, creatinine -2.5, potassium -2.4. The patient was admitted with diagnoses of hypokalemia, purulent bronchitis, human immunodeficiency virus status, non-Hodgkin lymphoma, status post bone marrow transplant, generalized weakness, acute renal failure on chronic renal insufficiency. HOSPITAL STAY: The patient was admitted. The patient was started on empiric antibiotics. ID consult was requested. Influenza screen test was negative. Sputum culture was positive for Staphylococcus aureus. According to ID, it was colonizer. He recommended empiric intravenous antibiotics while in the hospital and placed him on Bactrim three times a week for prophylaxis. HIV medications were resumed. The patient was hydrated. Information Systems Administrator closely followed. Initially with persistent hypokalemia. Trial of Aldactone attempted. Potassium improved and prior to discharge - 4.3. Renal ultrasound revealed normal bilateral kidney echogenicity , no evidence of hydronephrosis. Creatinine down from 2.5 to 2.1. Per drafter civil (cad), the patient had renal failure, acute on chronic, and chronic kidney disease with proteinuria, possibly HIV related. Electrolytes were closely monitored and replaced as needed. Nephrotoxics were avoided. Echocardiogram revealed preserved ejection fracture of 60% to 65%. Helper Marble Finisher followed. The patient had no cardiac complaints. Supplemental oxygen and pulmonary toilet were on board. Supplemental oxygen provided as needed to keep pulse oximetry above 92%. Prior to discharge, pulse oximetry was stable on room air. The patient was clinically improving. The patient was stable for discharge home to follow up with his primary care provider and HIV provider. FINAL DIAGNOSES: 1. Purulent bronchitis. 2. Hypokalemia. 3. Human immunodeficiency virus status. 4. History of non-Hodgkin lymphoma, status post bone marrow transplant. 5. Generalized weakness. 6. Renal failure, acute on chronic. 7. Chronic kidney disease with proteinuria, possible human immunodeficiency virus related. DISCHARGE MEDICATIONS: See medication reconciliation list. DISCHARGE INSTRUCTIONS: The patient was discharged home. Follow up with primary care provider and HIV provider. Bradford Hagan M.D. I have been assigned to dictate discharge summary on this account and I was not involved in the patient's management. Martha Coronel ([facility] NBrianaPBriana DR: Radha JOB#: [id number] CC: DESI
--- NOTE | 2017-09-28 18:46 | Cardiology Report ---
APPROVED REPORT EKG Measurement Heart [id number] Sinus tachycardia Otherwise normal ECG
== END 2017-09-23 11:20 | disposition home or self-care (01) | DRG 190 ==
LOC: EMR 20:20 → 2E 22:35 → EDBEDREQ 23:02 → 4E 09-20 16:35
DX: J41.1 Mucopurulent chronic bronchitis (principal); B20 Human immunodeficiency virus [HIV] disease; N17.9 Acute kidney failure, unspecified; Z94.81 Bone marrow transplant status; E87.6 Hypokalemia; F41.9 Anxiety disorder, unspecified; I12.9 Hypertensive chronic kidney disease with stage 1 through stage 4 chronic kidney disease, or unspecified chronic kidney disease; N18.9 Chronic kidney disease, unspecified; Z88.6 Allergy status to analgesic agent; Z88.1 Allergy status to other antibiotic agents; Z85.72 Personal history of non-Hodgkin lymphomas; F31.9 Bipolar disorder, unspecified
CPT/HCPCS: 36415; 71045; 76775; 80053; 80061; 81001; 81003; 81050; 82550; 82553; 82607; 82728; 82746; 82977; 83036; 83540; 83550; 83605; 83690; 83735; 83880; 84100; 84133; 84156; 84300; 84484; 84550; 85007; 85025; 86140; 86710; 87070; 87181; 87205; 89050; 93005; 93306; 93970; 94664; 99285; C9399; J2405; J8499